=== PATIENT | male | born 1965 | race Hispanic/Latino ===

== ENCOUNTER 2017-08-20 02:55 | Inpatient (IN) | payer OTHER ==
[2017-08-20 02:55] VITALS: BMI 19.9
[2017-08-20] MEDS ORDERED: Sodium Chloride 0.9% 1,000 ML ONE (03:19)
[2017-08-20] MEDS ORDERED: Multivitamin (MVI) 10 ML, Thiamine 100 MG, Folic Acid 1 MG in Sodium Chloride 0.9% 1,00... IV ONE ×2 (03:51→04:51)
--- NOTE | 2017-08-20 04:01 | C.PDOC ---
History Of Present Illness 52 year old male with PMHx of chronic alcoholism is brought to the ED for evaluation of shakiness. Patient reports his last drinks was today at 17:00. Patient also has PMHx of seizures and is currently taking keppra. Patient denies fever, chills, nausea, vomit, diarrhea, headache, dizziness, weakness, numbness. Chief Complaint (Nursing): Substance Abuse History Per: Patient, EMS History/Exam Limitations: intoxication Onset/Duration Of Symptoms: Hrs Current Symptoms Are (Timing): Still Present Suicide/Self Injury Attempted (Context): None Modifying Factor(s): Alcohol Associated Symptoms: denies: Depression, Suicidal Thoughts, Suicidal Plan Involuntary Hold By: None Recent travel outside of the [place]: No Additional History Per: Patient, EMS Past Medical History Reviewed: Historical Data, Nursing Documentation, Vital Signs Vital Signs: Last Vital Signs Temp 98 F 08/20/17 05:51 Pulse 108 H 08/20/17 05:51 Resp 17 08/20/17 05:51 BP 126/76 08/20/17 05:51 Pulse Ox 96 08/20/17 05:51 - Medical History PMH: Anemia, Anxiety, Atrial Fibrillation, Cardia Arrhythmia, Dementia, Depression, Fractures (WRIST FX.), HTN, Paranoia, Pneumonia, Seizures Denies: Deep Vein Thrombosis, Chronic Kidney Disease Surgical History: Appendectomy Denies: Pacemaker - [facility] Procedures ALCOHOL DETOXIFICATION (06/21/14) APPLICATION OF SPLINT (04/20/14) DETOXIFICATION SERVICES FOR SUBSTANCE ABUSE TREATMENT (09/20/15) FLUOROSCOPY L UP EXTREM VEIN W L OSM CONTRAST, GUIDANCE (04/07/16) INJECT/INFUSE NEC (02/03/14) INSERTION OF INFUSION DEV INTO SUP VENA CAVA, PERC APPROACH (04/07/16) LINEAR REP LID LACER (07/07/12) MAGNETIC RESONANCE IMAGING OF BRAIN AND BRAIN STEM (10/26/12) MEASURE OF CARDIAC SAMPL & PRESSURE, L HEART, PERC APPROACH (04/07/16) PLAIN RADIOGRAPHY OF LEFT HEART USING LOW OSMOLAR CONTRAST (04/07/16) PLAIN RADIOGRAPHY OF MULT COR ART USING L OSM CONTRAST (04/07/16) TETANUS TOXOID ADMINIST (07/07/12) THERAPEUTIC PLATELETPHERESIS (04/01/13) ULTRASONOGRAPHY OF LEFT UPPER EXTREMITY VEINS, GUIDANCE (04/07/16) VENOUS PUNCTURE NEC (10/31/13) Family History: States: CAD - Social History Hx Tobacco Use: Yes Hx Alcohol Use: Yes Hx Substance Use: No - Immunization History Hx Tetanus Toxoid Vaccination: No Hx Influenza Vaccination: No Hx Pneumococcal Vaccination: No Review Of Systems Constitutional: Negative for: Fever, Chills Eyes: Negative for: Vision Change Cardiovascular: Negative for: Chest Pain, Palpitations Respiratory: Negative for: Cough, Shortness of Breath Gastrointestinal: Negative for: Nausea, Vomiting Skin: Negative for: Rash Neurological: Positive for: Confusion. Negative for: Weakness, Numbness, Headache, Dizziness Physical Exam - Physical Exam Appears: Non-toxic, No Acute Distress, Confused (slightly) Skin: Normal Color, Warm, Dry Head: Atraumatic, Normacephalic Eye(s): bilateral: Normal Inspection Oral Mucosa: Moist Neck: Normal ROM, Supple Chest: Symmetrical Cardiovascular: Rhythm Regular (tachucardic) Respiratory: Normal Breath Sounds, No Rales, No Rhonchi, No Wheezing Gastrointestinal/Abdominal: Soft, No Tenderness, No Guarding, No Rebound Extremity: Normal ROM, No Tenderness, No Swelling Neurological/Psych: Oriented x3 (slightly confused), Normal Speech, Other (no focal deficits) Gait: Unable To Assess ED Course And Treatment - Laboratory Results Result Diagrams: 08/20/17 05:18 08/20/17 05:18 Pulse Ox Interpretation: Normal Medical Decision Making Medical Decision Making: Plan: * Ativan 2 mg IM * Haldol 5 mg IM * IV fluids Disposition Discussed With : Miriam Ruggiero Doctor Will See Patient In The: Hospital Counseled Patient/Family Regarding: Diagnosis - Disposition Referrals: Non [facility] Provider, [Primary Care Provider] - Disposition: HOSPITALIZED Disposition Time: 06:19 Condition: STABLE Forms: [employer] (Kittitian) - POA Present On Arrival: None - Clinical Impression Clinical Impression: Alcohol withdrawal syndrome, Seizure disorder - Scribe Statement The provider has reviewed the documentation as recorded by the Scribe Chucky Aguilar All medical record entries made by the Scribe were at my direction and personally dictated by me. I have reviewed the chart and agree that the record accurately reflects my personal performance of the history, physical exam, medical decision making, and the department course for this patient. I have also personally directed, reviewed, and agree with the discharge instructions and disposition.
[2017-08-20] MEDS ORDERED: Sodium Chloride 0.9% 1,000 ML IV ONE (05:15)
[2017-08-20 05:22] LABS: BASO % 1.4 % (0.0-2.0); EOS % 0.4 % (0.0-4.0); HEMOGLOBIN 11.7 g/dL (12.0-18.0); LYMPH # 0.6 K/uL (1.0-4.3); LYMPH % 18.8 % (20.0-40.0); MEAN CELL VOLUME 97.1 fL (80.0-94.0); MEAN CORPUSCULAR HEMOGLOBIN 33.5 pg (27.0-31.0); MEAN CORPUSCULAR HGB CONC 34.5 g/dL (33.0-37.0); MEAN PLATELET VOLUME 7.5 fL (7.2-11.7); MONO # 0.4 K/uL (0.0-0.8); MONO % 10.5 % (0.0-10.0); NEUT # 2.4 K/uL (1.8-7.0); NEUT % 68.9 % (50.0-75.0); NRBC % 0.2 % (0.0-2.0); RBC 3.51 Mil/uL (4.40-5.90); RED CELL DISTRIBUTION WIDTH 13.6 % (11.5-14.5); WHITE BLOOD COUNT 3.5 K/uL (4.8-10.8)
[2017-08-20 05:38] LABS: ALB/GLOB RATIO 1.3 (1.0-2.1); ALBUMIN 4.1 g/dL (3.5-5.0); ALT/SGPT 45 U/L (21-72); AST/SGOT 70 U/L (17-59); BLOOD UREA NITROGEN 6 mg/dL (9-20); GFR AFRICAN-AMERICAN > 60; GFR NON-AFRICAN AMERICAN > 60
[2017-08-20] MEDS: Dextrose 5%/0.45% NS 1,000 ML IV SCH ×3 (06:37→20:39)
[2017-08-20] MEDS: Thiamine 100 mg/ml Inj IM SCH (11:25)
--- NOTE | 2017-08-20 12:33 | CP.PCM.PN ---
Subjective - Date & Time of Evaluation Date of Evaluation: 08/20/17 Time of Evaluation: 12:30 - Subjective Subjective: PGY2 note for Dr. Ruggiero's service: Pt seen and examined at bedside on . Patient reports long history of alcohol abuse. Patient states he has been drinking for over 30+ years. Typical usage is "6-12 beers daily." Last drink occurred right before ocming to ED. He denies additional hard liquor. He admits previous history of delirium tremens: hallucinations, formication. Denies long period of sobriety over the 30+ years. Admits previous re[facility] attempt [facility] 15-20 yrs ago. Pt admits he is homeless. He reports he has not had "place to stay for months." He admits he has ran out of his home medication and has not taken "anything for 2-3 weeks." He denies chest pain, palpitations, abd pain, N/V, skin changes. Patient is 52 yo male, with PMHx of atrial fibrillation, seizure disorder, chronic alcoholism, Paul's gangrene, presenting to ED for "feeling shaky." Admits formication, tremors x 4 hours prior to coming to ED. Admits history of seizures, but has been taking "keppra infrequently recently." Denies syncopal episodes but admits multiple falls. Denies hitting head. PMHx: Afib (not on anticoagulant due to frequent falls), EtOH abuse, seizure disorder PSHx: Appendectomy, Paul's gangrene SHx: Tobacco: 1/2 ppd -1ppd x 40 years, Alcohol: 6-12pk beers/day x 30+ years Allergies: NKA Home meds: Keppra 1000mg PO BID, Toprol XL 100mg PO BID Objective - Vital Signs/Intake and Output Vital Signs (last 24 hours): Temp Pulse Resp BP Pulse Ox 98 F 88 21 128/82 96 08/20/17 10:35 08/20/17 10:35 08/20/17 10:35 08/20/17 10:35 08/20/17 10:35 - Medications Medications: Current Medications Dextrose/Sodium Chloride (Dextrose 5%/0.45% Ns 1000 Ml) 1,000 mls @ 100 mls/hr IV .Q10H [facility] Last Admin: 08/20/17 06:37 Dose: 100 mls/hr Levetiracetam (Keppra) 1,000 mg PO BID [facility] Last Admin: 08/20/17 11:05 Dose: 1,000 mg Lorazepam (Ativan) 2 mg IVP Q4H PRN PRN Reason: Anxiety Thiamine HCl (Vitamin B1 Inj) 100 mg IM DAILY [facility] Last Admin: 08/20/17 11:25 Dose: 100 mg - Labs Labs: 08/20/17 05:18 08/20/17 05:18 - Constitutional Appears: Non-toxic, No Acute Distress, Older Than Stated Age, Chronically Ill - Head Exam Head Exam: ATRAUMATIC, NORMAL INSPECTION - Eye Exam Eye Exam: EOMI, Normal appearance. absent: Scleral icterus Pupil Exam: PERRL - ENT Exam ENT Exam: Mucous Membranes Dry - Neck Exam Neck Exam: Full ROM - Respiratory Exam Respiratory Exam: Clear to Ausculation Bilateral, NORMAL BREATHING PATTERN. absent: Decreased Breath Sounds, Rales - Cardiovascular Exam Cardiovascular Exam: REGULAR RHYTHM, +S1, +S2 - GI/Abdominal Exam GI & Abdominal Exam: Soft, Normal Bowel Sounds. absent: Tenderness Additional comments: surgical scar from prior bowel surgery - Extremities Exam Extremities Exam: absent: Normal Inspection, Pedal Edema, Tenderness Additional comments: Ecchymosis on right knee - Back Exam Back Exam: absent: CVA tenderness (L), CVA tenderness (R) - Neurological Exam Neurological Exam: Alert, Awake, Oriented x3 - Psychiatric Exam Psychiatric exam: Normal Affect, Normal Mood - Skin Skin Exam: Dry, Normal Color, Warm Assessment and Plan - Assessment and Plan (Free Text) Plan: EtOH Withdrawal Observe on med surg EtOH level 213 on admission Previous multiple admissions to [facility] for same complaint. Seizure precautions, Aspiration precautions, Fall precautions, Neurochecks q 4 Ativan taper Ativan 2mg Q4H PRN D5/1/2 NS @100cc/hr f/u UDS, UA Seizure D/O Restart home Keppra 100mg PO BID EEG 2016 shows no epilleptiform activity AFib Currently rate controlled EKG (08/20/17): Afib @[address]; [address]/T wave changes Toprol XL 100 (hold if SBP <110 or Pulse <60) CHADsVAsc:1 (HTN history) HASBLED: 1 (> 8 drinks per week) No anticoagulation due to frequent falls Cont to monitor Pancytopenia likely Alcohol induced Hold Heparin Monitor HFmrEF (CHF with mildly reduced EF) ECHO (10/2016): systolic fxn mildly impaired EF ~45%. RV mildly dilated. Mild to moderate tricuspid regurgitation. No pericardial effusion. No vegetation or thrombus. Toprol XL 100mg PO Daily Transaminitis (elevated AST) AST 2:1 typical of EtOH AST 70 / ALT 45 Hx of ETOH abuse: Advised cessation Hx of tobacco abuse: Nicotine patch Prophylaxis Hold heparin due to thrombocytopenia SCDs GI not indicated Disposition: Pt on Ativan taper. Interested in [facility] re[facility]. Jace Batista PGY-2 All medical management per Dr. Marie
[2017-08-20] MEDS: Metoprolol Succinate 100 mg XL Tab PO SCH (14:41)
[2017-08-20 22:52] LABS: URINE BILIRUBIN NEGATIVE (NEGATIVE); URINE BLOOD NEGATIVE (NEGATIVE); URINE CLARITY Clear (Clear); URINE COLOR Yellow (YELLOW); URINE GLUCOSE (UA) 1+ mg/dL (Normal); URINE LEUKOCYTE ESTERASE NEG Leu/uL (Negative); URINE PROTEIN NEGATIVE (NEGATIVE)
[2017-08-20 23:16] LABS: BARBITURATES, UR NEGATIVE (NEGATIVE); BENZODIAZEPINES, UR NEGATIVE (NEGATIVE); OPIATES, UR NEGATIVE (NEGATIVE); PHENCYCLIDINE, UR NEGATIVE (NEGATIVE)
[2017-08-21] MEDS: Dextrose 5%/0.45% NS 1,000 ML IV SCH ×5 (02:58→22:12)
[2017-08-21] MEDS: Multiple Vitamins Tab PO SCH (10:35)
[2017-08-21 11:38] LABS: BASO % 1.1 % (0.0-2.0); EOS # 0.1 K/uL (0.0-0.7); EOS % 1.9 % (0.0-4.0); HEMOGLOBIN 12.5 g/dL (12.0-18.0); LYMPH # 0.7 K/uL (1.0-4.3); LYMPH % 22.9 % (20.0-40.0); MEAN CELL VOLUME 96.5 fL (80.0-94.0); MEAN CORPUSCULAR HEMOGLOBIN 34.1 pg (27.0-31.0); MEAN CORPUSCULAR HGB CONC 35.3 g/dL (33.0-37.0); MONO # 0.5 K/uL (0.0-0.8); MONO % 14.2 % (0.0-10.0); NEUT # 1.9 K/uL (1.8-7.0); NEUT % 59.9 % (50.0-75.0); NRBC % 0.1 % (0.0-2.0); RBC 3.67 Mil/uL (4.40-5.90); RED CELL DISTRIBUTION WIDTH 13.8 % (11.5-14.5); WHITE BLOOD COUNT 3.2 K/uL (4.8-10.8)
[2017-08-21 12:04] LABS: ALB/GLOB RATIO 1.4 (1.0-2.1); ALBUMIN 4.8 g/dL (3.5-5.0); ALT/SGPT 48 U/L (21-72); AST/SGOT 89 U/L (17-59); BLOOD UREA NITROGEN 6 mg/dL (9-20); CALCIUM 8.8 mg/dl (8.6-10.4); GFR AFRICAN-AMERICAN > 60; GFR NON-AFRICAN AMERICAN > 60
[2017-08-21] MEDS: Thiamine 100 mg/ml Inj IM SCH (13:01)
[2017-08-21] MEDS: Metoprolol Succinate 100 mg XL Tab PO SCH (13:01)
[2017-08-21] MEDS: Magnesium Chloride 64 mg ER Tab PO SCH ×2 (14:05→17:25)
[2017-08-21] MEDS: Potassium Chloride 20 mEq ER Tab PO SCH (14:05)
--- NOTE | 2017-08-22 08:14 | PCM.PSYCH ---
Initial Psychiatric Evaluation - Initial Psychiatric Evaluation Type of Admission: Voluntary Legal Status: Capacity Chief Complaint (in patient's own words): I want to leave.' History of Present Illness and Precipitating Events: This is a 52 years old CM, currently homeless, and unemployed with history of depressive disorder and alcohol use disorder was consulted because of disorganized behavior. Today pt was consulted. As per the staff pt remained disorganized and internally preoccupied. He remained delusional and remained responding to internal stimuli. He remained forgetful and appeared delirious. As per the staff he was trying to pull out the IV lines and was trying to come out of the bed. Per staff he was going back and forth in conscious state of mind. He was shaking and his BAL was 213. However, he denied any suicidal ideation and/or any homicidal ideation. Past medical history AFib Current Medications: Active Medications Generic Name Dose Route Start Last Admin Trade Name Freq PRN Reason Stop Dose Admin Folic Acid 1 mg 08/21/17 10:00 08/21/17 10:35 Folic Acid PO 1 mg DAILY [facility] Administration Dextrose/Sodium Chloride 1,000 mls @ 100 mls/hr 08/20/17 06:30 08/21/17 22:12 Dextrose 5%/0.45% Ns 1000 Ml IV 100 mls/hr .Q10H [facility] Administration Levetiracetam 1,000 mg 08/20/17 10:00 08/21/17 17:25 Keppra PO 1,000 mg BID [facility] Administration Lorazepam 2 mg 08/20/17 06:23 08/22/17 07:07 Ativan IVP 2 mg Q4H PRN Administration Anxiety Lorazepam 2 mg 08/20/17 13:00 08/22/17 03:33 Ativan PO 08/25/17 12:59 2 mg Q4 [facility] Administration Taper Magnesium Chloride 64 mg 08/21/17 14:00 08/21/17 17:25 Slow-Mag PO 64 mg TID [facility] Administration Metoprolol Succinate 100 mg 08/20/17 14:00 08/21/17 13:01 Toprol Xl PO 100 mg Q24H [facility] Administration Multivitamins 1 tab 08/21/17 10:00 08/21/17 10:35 Hexavitamin PO 1 tab DAILY [facility] Administration Nicotine 1 patch 08/20/17 14:00 08/21/17 13:01 Nicoderm Cq TD 1 patch Q24H [facility] Administration Potassium Chloride 20 meq 08/21/17 13:45 08/21/17 14:05 K-Dur 20 Meq Er Tab PO 20 meq DAILY [facility] Administration Thiamine HCl 100 mg 08/20/17 10:00 08/21/17 13:01 Vitamin B1 Inj IM 100 mg DAILY [facility] Administration Past Psychiatric History - Past Psychiatric History Previous Treatment History: None Pertinent Medical Hx (Current Medical&Sleep Prob, Allergies): Allergies Allergy/AdvReac Type Severity Reaction Status Date / Time No Known Allergies Allergy Verified 08/20/17 03:12 levETIRAcetam [Keppra] 1 tab PO BID #60 tab 05/26/17 Review of Systems - Review of Systems All systems: reviewed and no additional remarkable complaints except - Psychiatric Psychiatric: Anxiety, Auditory Hallucinations, Irritability, Paranoia Mental Status Examination - Personal Presentation Personal Presentation: Looks stated age - Affect Affect: Broad - Motor Activity Motor Activity: Psychomotor Agitation - Reliability in Providing Information Reliability in Providing Information: Fair - Speech Speech: Disorganized - Mood Mood: Anxious - Formal Thought Process Formal Thought Process: Delusions, Paranoia, Loosening of associations - Hallucinations/Delusions Delusions: Persecution - Obsessions/Compulsions Obsessions: No Compulsions: No - Cognitive Functions Orientation: Person, Place, Situation Sensorium: Alert Attention/Concentration: Attentive Abstract Thinking: [place] Estimate of Intelligence: Below average Judgement: Imparied, as evidence by: Poor judgement, Imparied, as evidence by: Lack of insight into illness - Risk Risk: Homicidal, Seizure, Diminished functioning - Strength & Assets Inventory Strength & Assets Inventory: Family support DSM 5 DX - DSM 5 DSM 5 Diagnosis: Delirium Alcohol use disorder severe Alcohol withdrawal Depressive disorder - Recommended/Plan of Treatment Treatment Recommendations and Plan of Treatment: Delirium Alcohol use disorder severe Alcohol withdrawal Depressive disorder CBT Psychoeducation Supportive therapy, group therapy Ativan taper Haldol prn Benadryl 50 mg PRN Ativan1 mg mg PRN Continue 1:1 Trazodone 50 mg by mouth daily at bedtime - Smoking Cessation Smoking Cessation Initiated: No
[2017-08-22] MEDS ORDERED: DiphenhydrAMINE 50 mg/ml Inj IM PRN (08:22)
[2017-08-22] MEDS: Dextrose 5%/0.45% NS 1,000 ML IV SCH (08:31)
[2017-08-22] MEDS: Thiamine 100 mg/ml Inj IM SCH (09:37)
[2017-08-22] MEDS: Potassium Chloride 20 mEq ER Tab PO SCH (09:37)
[2017-08-22] MEDS: Multiple Vitamins Tab PO SCH (09:37)
[2017-08-22] MEDS: Magnesium Chloride 64 mg ER Tab PO SCH ×3 (09:37→17:39)
[2017-08-22] MEDS: Metoprolol Succinate 100 mg XL Tab PO SCH (14:10)
--- NOTE | 2017-08-23 07:35 | HP ---
HISTORY OF PRESENT ILLNESS: This is a 52-year-old male with history of alcoholism, history of seizure, chief complaint of alcohol withdrawal. PHYSICAL EXAMINATION: GENERAL: The patient is awake, alert, and oriented. VITAL SIGNS: Temperature 98, pulse 90. HEENT: Within normal limits. NECK: Supple. CHEST: Symmetrical. HEART: Regular. ABDOMEN: Soft. EXTREMITIES: No edema. IMPRESSION AND PLAN: The patient suffers from alcohol withdrawal. The patient is to bed rest. Supportive care. Miriam Ruggiero MD
--- NOTE | 2017-08-23 07:39 | PN ---
DATE: 08/22/2017 The patient is on IV antibiotics. Supportive care. Miriam Ruggiero MD [facility] # [id number]
[2017-08-23] MEDS: Potassium Chloride 20 mEq ER Tab PO SCH (09:34)
[2017-08-23] MEDS: Multiple Vitamins Tab PO SCH (09:34)
[2017-08-23] MEDS: Magnesium Chloride 64 mg ER Tab PO SCH ×3 (09:34→17:51)
[2017-08-23] MEDS: Thiamine 100 mg/ml Inj IM SCH (09:34)
--- NOTE | 2017-08-23 11:34 | CP.PCM.PN ---
Subjective - Date & Time of Evaluation Date of Evaluation: 08/23/17 Time of Evaluation: 11:33 - Subjective Subjective: PGY-[address] Ruggiero's Service Patient seen and examined at [facility]. Per nursing no acute events occurred overnight. Patient does report some anxiety today but says it has improved from this weekend. Patient denies any chest pain, shortness of breath, fevers, chills , nausea, vomiting, syncopal episodes, abdominal pain, or any other complaints. Objective - Vital Signs/Intake and Output Vital Signs (last 24 hours): Temp Pulse Resp BP Pulse Ox 97.6 F 112 H 20 138/95 H 99 08/23/17 07:00 08/23/17 08:20 08/23/17 07:00 08/23/17 07:00 08/23/17 07:00 - Medications Medications: Current Medications Benztropine Mesylate (Cogentin) 2 mg PO Q6 PRN PRN Reason: Extra Pyramidal Symptoms Diphenhydramine HCl (Benadryl) 50 mg IM Q6 PRN PRN Reason: Agitation Folic Acid (Folic Acid) 1 mg PO DAILY [facility] Last Admin: 08/23/17 09:34 Dose: 1 mg Haloperidol (Haldol) 5 mg PO Q8 PRN PRN Reason: Moderate Agitation Last Admin: 08/22/17 17:45 Dose: 5 mg Haloperidol Lactate (Haldol) 5 mg IM Q8 PRN PRN Reason: Moderate Agitation Levetiracetam (Keppra) 1,000 mg PO BID [facility] Last Admin: 08/23/17 09:34 Dose: 1,000 mg Lorazepam (Ativan) 2 mg IVP Q4H PRN PRN Reason: Anxiety Last Admin: 08/22/17 21:24 Dose: 2 mg Lorazepam (Ativan) 1 mg PO Q4 [facility] PRN Reason: Taper Stop: 08/25/17 12:59 Last Admin: 08/23/17 08:52 Dose: 1 mg Magnesium Chloride (Slow-Mag) 64 mg PO TID [facility] Last Admin: 08/23/17 09:34 Dose: 64 mg Metoprolol Succinate (Toprol Xl) 100 mg PO Q24H [facility] Last Admin: 08/22/17 14:10 Dose: Not Given Multivitamins (Hexavitamin) 1 tab PO DAILY [facility] Last Admin: 08/23/17 09:34 Dose: 1 tab Nicotine (Nicoderm Cq) 1 patch TD Q24H [facility] Last Admin: 08/22/17 13:11 Dose: 1 patch Potassium Chloride (K-Dur 20 Meq Er Tab) 20 meq PO DAILY [facility] Last Admin: 08/23/17 09:34 Dose: 20 meq Thiamine HCl (Vitamin B1 Inj) 100 mg IM DAILY [facility] Last Admin: 08/23/17 09:34 Dose: 100 mg - Labs Labs: 08/21/17 11:31 08/21/17 11:31 - Head Exam Head Exam: ATRAUMATIC, NORMAL INSPECTION, NORMOCEPHALIC - Eye Exam Eye Exam: EOMI, Normal appearance, PERRL. absent: Periorbital tenderness Pupil Exam: NORMAL ACCOMODATION, PERRL. absent: Irregular, Unequal - ENT Exam ENT Exam: Mucous Membranes Moist, Normal Oropharynx - Respiratory Exam Respiratory Exam: Clear to Ausculation Bilateral, NORMAL BREATHING PATTERN. absent: Chest Wall Tenderness, Prolonged Expiratory Phase, Respiratory Distress - Cardiovascular Exam Cardiovascular Exam: REGULAR RHYTHM, +S1, +S2 - GI/Abdominal Exam GI & Abdominal Exam: Normal Bowel Sounds - Extremities Exam Extremities Exam: Full ROM, Normal Inspection. absent: Pedal Edema - Back Exam Back Exam: NORMAL INSPECTION. absent: CVA tenderness (R), paraspinal tenderness - Neurological Exam Neurological Exam: Alert, Awake - Psychiatric Exam Psychiatric exam: Anxious, Normal Mood - Skin Skin Exam: Dry, Intact, Normal Color Assessment and Plan - Assessment and Plan (Free Text) Assessment: 52 year old male with a past medical history of alcohol abuse, seizures and atrial fibrillation who was admitted for alcohol withdrawal. Plan: 1. Alcohol withdrawal -ERI 213 upon admission. -UDS negative. -Continue Ativan 2mg q4 prn -Continue Ativan 1mg PO Q4 [facility] -Folic acid 1mg PO DAILY -Thiamine 100mg IM Daily [facility] -Multivitamin 2. History of Seizures -Stable -Continue Keppra 1000mg PO BID [facility] 3. History of smoking -Nicoderm 1 PATCH td q24h
[2017-08-23] MEDS: Metoprolol Succinate 100 mg XL Tab PO SCH (13:24)
--- NOTE | 2017-08-24 07:09 | CARD ---
APPROVED REPORT Date of service: 08/20/2017 EKG Measurement Heart [id number] <Conclusion> Atrial fibrillation Septal infarct, age undetermined Abnormal ECG
[2017-08-24 07:41] LABS: BASO % 0.7 % (0.0-2.0); EOS # 0.4 K/uL (0.0-0.7); EOS % 5.5 % (0.0-4.0); HEMOGLOBIN 12.5 g/dL (12.0-18.0); LYMPH # 1.8 K/uL (1.0-4.3); LYMPH % 24.3 % (20.0-40.0); MEAN CELL VOLUME 98.1 fL (80.0-94.0); MEAN CORPUSCULAR HEMOGLOBIN 34.8 pg (27.0-31.0); MEAN CORPUSCULAR HGB CONC 35.5 g/dL (33.0-37.0); MEAN PLATELET VOLUME 9.1 fL (7.2-11.7); MONO # 1.2 K/uL (0.0-0.8); MONO % 16.3 % (0.0-10.0); NEUT # 3.8 K/uL (1.8-7.0); NEUT % 53.2 % (50.0-75.0); NRBC % 0.2 % (0.0-2.0); RBC 3.6 Mil/uL (4.40-5.90); RED CELL DISTRIBUTION WIDTH 13.6 % (11.5-14.5)
--- NOTE | 2017-08-24 07:44 | CP.PCM.PN ---
Subjective - Date & Time of Evaluation Date of Evaluation: 08/24/17 Time of Evaluation: 07:44 - Subjective Subjective: PGY-[address] Ruggiero's Service Patient seen and examined at bedside. Per nursing no acute events occurred overnight. Patient does report a little anxiety today but says it has improved from yesterday. Patient denies any chest pain, shortness of breath, fevers, chills, nausea, vomiting, syncopal episodes, abdominal pain, or any other complaints. Objective - Vital Signs/Intake and Output Vital Signs (last 24 hours): Temp Pulse Resp BP Pulse Ox 97.9 F 87 18 125/84 96 08/23/17 23:19 08/23/17 23:25 08/23/17 23:19 08/23/17 23:19 08/23/17 23:19 - Medications Medications: Current Medications Benztropine Mesylate (Cogentin) 2 mg PO Q6 PRN PRN Reason: Extra Pyramidal Symptoms Diphenhydramine HCl (Benadryl) 50 mg IM Q6 PRN PRN Reason: Agitation Folic Acid (Folic Acid) 1 mg PO DAILY [facility] Last Admin: 08/23/17 09:34 Dose: 1 mg Haloperidol (Haldol) 5 mg PO Q8 PRN PRN Reason: Moderate Agitation Last Admin: 08/22/17 17:45 Dose: 5 mg Haloperidol Lactate (Haldol) 5 mg IM Q8 PRN PRN Reason: Moderate Agitation Levetiracetam (Keppra) 1,000 mg PO BID [facility] Last Admin: 08/23/17 17:50 Dose: 1,000 mg Lorazepam (Ativan) 2 mg IVP Q4H PRN PRN Reason: Anxiety Last Admin: 08/22/17 21:24 Dose: 2 mg Lorazepam (Ativan) 1 mg PO Q8 [facility] PRN Reason: Taper Stop: 08/25/17 12:59 Last Admin: 08/24/17 06:15 Dose: Not Given Magnesium Chloride (Slow-Mag) 64 mg PO TID [facility] Last Admin: 08/23/17 17:51 Dose: 64 mg Metoprolol Succinate (Toprol Xl) 100 mg PO Q24H [facility] Last Admin: 08/23/17 13:24 Dose: 100 mg Multivitamins (Hexavitamin) 1 tab PO DAILY [facility] Last Admin: 08/23/17 09:34 Dose: 1 tab Nicotine (Nicoderm Cq) 1 patch TD Q24H [facility] Last Admin: 08/23/17 13:24 Dose: 1 patch Potassium Chloride (K-Dur 20 Meq Er Tab) 20 meq PO DAILY [facility] Last Admin: 08/23/17 09:34 Dose: 20 meq Thiamine HCl (Vitamin B1 Inj) 100 mg IM DAILY [facility] Last Admin: 08/23/17 09:34 Dose: 100 mg - Labs Labs: 08/21/17 11:31 08/21/17 11:31 - Head Exam Head Exam: ATRAUMATIC, NORMAL INSPECTION, NORMOCEPHALIC - Eye Exam Eye Exam: EOMI, Normal appearance, PERRL Pupil Exam: NORMAL ACCOMODATION, PERRL - ENT Exam ENT Exam: Mucous Membranes Moist, Normal Exam - Neck Exam Neck Exam: Normal Inspection - Respiratory Exam Respiratory Exam: Clear to Ausculation Bilateral, NORMAL BREATHING PATTERN - Cardiovascular Exam Cardiovascular Exam: REGULAR RHYTHM, +S1, +S2 - GI/Abdominal Exam GI & Abdominal Exam: Soft, Normal Bowel Sounds - Extremities Exam Extremities Exam: Full ROM. absent: Pedal Edema - Back Exam Back Exam: NORMAL INSPECTION. absent: CVA tenderness (R), paraspinal tenderness - Neurological Exam Neurological Exam: Alert, Awake, CN II-XII Intact - Psychiatric Exam Psychiatric exam: Normal Affect, Normal Mood - Skin Skin Exam: Dry, Intact Assessment and Plan - Assessment and Plan (Free Text) Plan: EtOH Withdrawal Observe on med surg EtOH level 213 on admission Previous multiple admissions to [facility] for same complaint. Seizure precautions, Aspiration precautions, Fall precautions, Neurochecks q 4 Ativan taper Ativan 2mg Q4H PRN D5/1/2 NS @100cc/hr f/u UDS, UA Seizure D/O Continue home Keppra 100mg PO BID EEG 2016 shows no epilleptiform activity AFib Currently rate controlled EKG (08/20/17): Afib @93 bpm; no acute ST/T wave changes Toprol XL 100 (hold if SBP <110 or Pulse <60) CHADsVAsc:1 (HTN history) HASBLED: 1 (> 8 drinks per week) No anticoagulation due to frequent falls Cont to monitor Pancytopenia likely Alcohol induced Hold Heparin Monitor HFmrEF (CHF with mildly reduced EF) ECHO (10/2016): systolic fxn mildly impaired EF ~45%. RV mildly dilated. Mild to moderate tricuspid regurgitation. No pericardial effusion. No vegetation or thrombus. Toprol XL 100mg PO Daily Transaminitis (elevated AST) AST 2:1 typical of EtOH AST 70 / ALT 45 Hx of ETOH abuse: Advised cessation Hx of tobacco abuse: Nicotine patch Prophylaxis Hold heparin due to thrombocytopenia SCDs GI not indicated Disposition: Pt on Ativan taper. [facility]ed [facility]. William Graham PGY-2 All medical management per Dr. Ruggiero
[2017-08-24 08:09] LABS: WHITE BLOOD COUNT 7.2 K/uL (4.8-10.8)
[2017-08-24 08:48] LABS: ALB/GLOB RATIO 1.2 (1.0-2.1); ALBUMIN 4.3 g/dL (3.5-5.0); ALT/SGPT 151 U/L (21-72); AST/SGOT 169 U/L (17-59); BLOOD UREA NITROGEN 15 mg/dL (9-20); CALCIUM 10.2 mg/dl (8.6-10.4); GFR AFRICAN-AMERICAN > 60; GFR NON-AFRICAN AMERICAN > 60
[2017-08-24] MEDS: Potassium Chloride 20 mEq ER Tab PO SCH (09:11)
[2017-08-24] MEDS: Multiple Vitamins Tab PO SCH (09:11)
[2017-08-24] MEDS: Thiamine 100 mg/ml Inj IM SCH (09:11)
[2017-08-24] MEDS: Magnesium Chloride 64 mg ER Tab PO SCH ×3 (09:11→17:43)
[2017-08-24] MEDS: Metoprolol Succinate 100 mg XL Tab PO SCH (13:11)
[2017-08-25] MEDS: Thiamine 100 mg/ml Inj IM SCH (10:05)
[2017-08-25] MEDS: Potassium Chloride 20 mEq ER Tab PO SCH (10:06)
[2017-08-25] MEDS: Multiple Vitamins Tab PO SCH (10:06)
[2017-08-25] MEDS: Magnesium Chloride 64 mg ER Tab PO SCH ×3 (11:00→17:06)
--- NOTE | 2017-08-25 11:25 | CP.PCM.PN ---
Subjective - Date & Time of Evaluation Date of Evaluation: 08/25/17 Time of Evaluation: 11:22 - Subjective Subjective: Patient seen and examined at bedside. Per nursing no acute events occurred overnight. Patient reports not sleeping well overnight due to his roommate. He reports tolerating his diet. He denies any SI/HI/AH/VH. He denies any chest pain , shortness of breath, fevers, chills, or any other complaints. Objective - Vital Signs/Intake and Output Vital Signs (last 24 hours): Temp Pulse Resp BP Pulse Ox 97.8 F 77 20 172/82 H 100 08/25/17 07:00 08/25/17 08:08 08/25/17 07:00 08/25/17 07:00 08/25/17 07:00 Intake and Output: 08/25/17 08/25/17 06:59 18:59 Intake Total 240 Balance 240 - Medications Medications: Current Medications Benztropine Mesylate (Cogentin) 2 mg PO Q6 PRN PRN Reason: Extra Pyramidal Symptoms Diphenhydramine HCl (Benadryl) 50 mg IM Q6 PRN PRN Reason: Agitation Folic Acid (Folic Acid) 1 mg PO DAILY [facility] Last Admin: 08/25/17 10:06 Dose: 1 mg Haloperidol (Haldol) 5 mg PO Q8 PRN PRN Reason: Moderate Agitation Last Admin: 08/22/17 17:45 Dose: 5 mg Haloperidol Lactate (Haldol) 5 mg IM Q8 PRN PRN Reason: Moderate Agitation Levetiracetam (Keppra) 1,000 mg PO BID [facility] Last Admin: 08/25/17 10:06 Dose: 1,000 mg Lorazepam (Ativan) 2 mg IVP Q4H PRN PRN Reason: Anxiety Last Admin: 08/22/17 21:24 Dose: 2 mg Lorazepam (Ativan) 1 mg PO Q24H [facility] PRN Reason: Taper Stop: 08/25/17 12:59 Last Admin: 08/24/17 13:11 Dose: 1 mg Magnesium Chloride (Slow-Mag) 64 mg PO TID [facility] Last Admin: 08/24/17 17:43 Dose: 64 mg Metoprolol Succinate (Toprol Xl) 100 mg PO Q24H [facility] Last Admin: 08/24/17 13:11 Dose: 100 mg Multivitamins (Hexavitamin) 1 tab PO DAILY [facility] Last Admin: 08/25/17 10:06 Dose: 1 tab Nicotine (Nicoderm Cq) 1 patch TD Q24H [facility] Last Admin: 08/24/17 13:11 Dose: 1 patch Potassium Chloride (K-Dur 20 Meq Er Tab) 20 meq PO DAILY [facility] Last Admin: 08/25/17 10:06 Dose: 20 meq Thiamine HCl (Vitamin B1 Inj) 100 mg IM DAILY [facility] Last Admin: 08/25/17 10:05 Dose: 100 mg - Labs Labs: 08/24/17 07:12 08/24/17 07:12 - Head Exam Head Exam: ATRAUMATIC, NORMAL INSPECTION, NORMOCEPHALIC - Eye Exam Eye Exam: EOMI, Normal appearance, PERRL. absent: Periorbital tenderness Pupil Exam: NORMAL ACCOMODATION, PERRL - ENT Exam ENT Exam: Mucous Membranes Moist, Normal Oropharynx - Respiratory Exam Respiratory Exam: Clear to Ausculation Bilateral, NORMAL BREATHING PATTERN. absent: Prolonged Expiratory Phase, Respiratory Distress - Cardiovascular Exam Cardiovascular Exam: REGULAR RHYTHM, +S1, +S2 - GI/Abdominal Exam GI & Abdominal Exam: Soft, Normal Bowel Sounds - Extremities Exam Extremities Exam: Full ROM. absent: Joint Swelling, Pedal Edema, Tenderness - Neurological Exam Neurological Exam: Alert, Awake, CN II-XII Intact, Normal Gait, Oriented x3 Assessment and Plan - Assessment and Plan (Free Text) Plan: EtOH Withdrawal Observe on med surg EtOH level 213 on admission Previous multiple admissions to [facility] for same complaint. Seizure precautions, Aspiration precautions, Fall precautions, Neurochecks q 4 Ativan taper completed. Physical therapy evaluation recommends Subacute rehab. Will follow up with social work. Seizure D/O Continue home Keppra 100mg PO BID EEG 2016 shows no epilleptiform activity AFib Currently rate controlled EKG (08/20/17): Afib @[address]; [address]/T wave changes Toprol XL 100 (hold if SBP <110 or Pulse <60) CHADsVAsc:1 (HTN history) HASBLED: 1 (> 8 drinks per week) No anticoagulation due to frequent falls Cont to monitor Pancytopenia likely Alcohol induced Hold Heparin Monitor HFmrEF (CHF with mildly reduced EF) ECHO (10/2016): systolic fxn mildly impaired EF ~45%. RV mildly dilated. Mild to moderate tricuspid regurgitation. No pericardial effusion. No vegetation or thrombus. Toprol XL 100mg PO Daily Transaminitis (elevated AST) AST 2:1 typical of EtOH Hx of ETOH abuse: Advised cessation Hx of tobacco abuse: Nicotine patch Prophylaxis Hold heparin due to thrombocytopenia SCDs GI not indicated Disposition:Patient expected to move to Subacute rehab for therapy. Pending insurance approval. William Graham PGY-2 All medical management per Dr. Ruggiero Discharge Instructions: 1.Follow up with PMD or make an appointment with [facility] within 5 to 7 days upon discharge. 2.Provided information regarding group home rehab options upon discharge. 3 Advised patient to return to hospital for any new or worsening symptoms.
--- NOTE | 2017-08-25 12:38 | PCM.PYCHPN ---
Psychiatric Progress Note - Psychiatric Progress Note Patient seen today, length of contact: 18 min Patient Chief Complaint: "I'm depressed" Problems Identified/Issues Discussed: The patient is seen, chart reviewed and case discussed. Order Runner is covering for Dr. Webb was saw the patient for initial consult. He is a 52-year-old male, with no children. He is completing his alcohol detox today. He is worried about his living conditions because he is currently homeless due to eviction. However, he is hopeful that his brother will take him and his . He admits to feeling depressed even though alcohol detox is completed. However, he is not suicidal and no neymar or psychosis elicited. He has many depressive symptoms though. Antidepressant treatment discussed and he agreed. He will be referred to an [facility], as per his resident doctor. Medication Change: Yes Medical Record Reviewed: Yes Mental Status Examination - Cognitive Function Orientation: Person, Place, Situation, Time Memory: Intact Attention: WNL Concentration: WNL Association: WNL Fund of Knowledge: WNL - Mood Mood: Depressed, Anxious - Affect Affect: Constricted - Speech Speech: Appropriate - Formal Thought Process Formal Thought Process: No Impairment - Suicidal Ideation Suicidal Ideation: No - Homicidal Ideation Homicidal Ideation: No Goal/Treatment Plan - Goal/Treatment Plan Need for Continued Stay: Other (medical) Progress Toward Problem(s) and Goals/Treatment Plan: No need for inpatient psychiatric hospitalization. Start Lexapro for depression Start trazodone for insomnia Support and psychoeducation He should follow up with outpatient psychiatry, AA and maybe IOP after discharge from [facility] He agreed with the plan.
[2017-08-25] MEDS: Metoprolol Succinate 100 mg XL Tab PO SCH (13:05)
--- NOTE | 2017-08-25 17:24 | PCM.RRT ---
PROGRAM MANAGER RN Nurses Assessment - Situation Date: 08/25/17 Time PROGRAM MANAGER RN was called: 16:11 PROGRAM MANAGER RN Responder Arrival Time:: 16:12 PROGRAM MANAGER RN Location:: Med/Surg Room Number: 565-A PROGRAM MANAGER RN Reason for Call: Change in Mental Status PROGRAM MANAGER RN Called By: RN - IV IV Inserted during PROGRAM MANAGER RN?: No New IV Insertion Tolerance: Good - Respiratory PROGRAM MANAGER RN Delivery Method: Nasal Cannula @L/min Oxygen Flow Rate: 2 Received Nebulizer Treatments: No Was the Patient Ventilated with Bag/Mask 100% O2?: No Secretions Suctioned?: No Was the Patient Intubated?: No Was the Patient Placed on a Ventilator?: No - Medication Medications Administered During PROGRAM MANAGER RN: Ativan 2 mg 16:18 - Diagnostic Test Ordered EKG: No Chest X-Ray: No CT Scan: No CPR started during PROGRAM MANAGER RN?: No - Vital Signs Vital Signs: Rapid Response Vital Sign Blood Pressure 197/94 Pulse Rate 92 Respiratory Rate 20 Oxygen Saturation 99 - Time PROGRAM MANAGER RN Ended Time PROGRAM MANAGER RN Ended: 16:40 - Vital Signs at end of PROGRAM MANAGER RN Vital Signs at end of PROGRAM MANAGER RN: Rapid Response End Vital Sign Blood Pressure 159/81 Pulse Rate 82 Respiratory Rate 18 Temperature 97.8 F O2 Sat by Pulse Oximetry 99 - Recommendations Notifications: Attending Physician, Family or Designated Caregiver - Respiratory Oxygen Delivery Method: Nasal Cannula @L/min Oxygen Flow Rate: 2 - Constitutional Appears: Non-toxic, No Acute Distress - Head Head Exam: ATRAUMATIC, NORMAL INSPECTION, NORMOCEPHALIC - Eyes Eye Exam: PERRL Additional Comments: pt unable to track visual stimuli upon initial exam, but upon reexamination, pt had improved ability track - Respiratory Exam Respiratory Exam: Clear to Ausculation Bilateral, NORMAL BREATHING PATTERN. absent: Rales, Rhonchi, Wheezes - Cardiovascular Exam Cardiovascular Exam: +S1, +S2. absent: Irregular Rhythm, Murmur - GI/Abdominal Exam GI & Abdominal Exam: Soft, Normal Bowel Sounds - Neurological Exam Neurological Exam: Alert, Awake - Extremities Exam Extremities Exam: absent: Calf Tenderness, Normal Inspection, Pedal Edema Plan - Assessment of Findings&Treatment Plan 52 year old male with a past medical history of alcohol abuse, seizures and atrial fibrillation who was admitted for alcohol withdrawal. PROGRAM MANAGER RN was called when nurse noticed patients mental status changed and all 4 extremities began to shake. Plan: - 2 mg IVP ativan given Disposition: - Patient was r-evaluated avter 1mg ativan given ? seizure subsided, patient was clinically postictal w/ improving mentation upon further evaluation. An attempt was made to contact PMD Dr. Clyde Chirinos.
[2017-08-26 00:46] VITALS: RESP 20
--- NOTE | 2017-08-26 07:32 | CP.PCM.PN ---
Subjective - Date & Time of Evaluation Date of Evaluation: 08/26/17 Time of Evaluation: 07:28 - Subjective Subjective: PGY-[address] Ruggiero's service Patient seen and examined at bedside. Per nursing no acute events overnight. Patient reports "bad headache" yesterday after "his seizure." He denies seizure- like activity overnight, fever, chills, abdominal pain, N/v. He states he is ready for discharge but is still debating location for inpatient rehab. Objective - Vital Signs/Intake and Output Vital Signs (last 24 hours): Temp Pulse Resp BP Pulse Ox 98.3 F 72 20 120/80 96 08/26/17 00:46 08/26/17 00:46 08/26/17 00:46 08/26/17 00:46 08/26/17 00:46 Intake and Output: 08/26/17 08/26/17 06:59 18:59 Intake Total 240 Output Total 1400 Balance -1160 - Medications Medications: Current Medications Benztropine Mesylate (Cogentin) 2 mg PO Q6 PRN PRN Reason: Extra Pyramidal Symptoms Diphenhydramine HCl (Benadryl) 50 mg IM Q6 PRN PRN Reason: Agitation Escitalopram Oxalate (Lexapro) 10 mg PO DAILY [facility] Last Admin: 08/25/17 13:06 Dose: 10 mg Folic Acid (Folic Acid) 1 mg PO DAILY [facility] Last Admin: 08/25/17 10:06 Dose: 1 mg Levetiracetam (Keppra) 1,000 mg PO BID [facility] Last Admin: 08/25/17 17:06 Dose: 1,000 mg Lorazepam (Ativan) 2 mg IVP Q4H PRN PRN Reason: Anxiety Last Admin: 08/22/17 21:24 Dose: 2 mg Magnesium Chloride (Slow-Mag) 64 mg PO TID [facility] Last Admin: 08/25/17 17:06 Dose: 64 mg Metoprolol Succinate (Toprol Xl) 100 mg PO Q24H [facility] Last Admin: 08/25/17 13:05 Dose: 100 mg Multivitamins (Hexavitamin) 1 tab PO DAILY [facility] Last Admin: 08/25/17 10:06 Dose: 1 tab Nicotine (Nicoderm Cq) 1 patch TD Q24H [facility] Last Admin: 07/18/18 13:05 Dose: 1 patch Potassium Chloride (K-Dur 20 Meq Er Tab) 20 meq PO DAILY [facility] Last Admin: 08/25/17 10:06 Dose: 20 meq Thiamine HCl (Vitamin B1 Inj) 100 mg IM DAILY [facility] Last Admin: 08/25/17 10:05 Dose: 100 mg Trazodone HCl (Desyrel) 50 mg PO HS [facility] Last Admin: 08/25/17 22:06 Dose: 50 mg - Labs Labs: 08/24/17 07:12 08/24/17 07:12 - Additional Findings Additional findings: Head Exam Head Exam: ATRAUMATIC, NORMAL INSPECTION, NORMOCEPHALIC - Eye Exam Eye Exam: EOMI, Normal appearance, PERRL. absent: Periorbital tenderness Pupil Exam: NORMAL ACCOMODATION, PERRL - ENT Exam ENT Exam: Mucous Membranes Moist, Normal Oropharynx - Respiratory Exam Respiratory Exam: Clear to Ausculation Bilateral, NORMAL BREATHING PATTERN. absent: Prolonged Expiratory Phase, Respiratory Distress - Cardiovascular Exam Cardiovascular Exam: REGULAR RHYTHM, +S1, +S2 - GI/Abdominal Exam GI & Abdominal Exam: Soft, Normal Bowel Sounds - Extremities Exam Extremities Exam: Full ROM. absent: Joint Swelling, Pedal Edema, Tenderness - Neurological Exam Neurological Exam: Alert, Awake, CN II-XII Intact, Normal Gait, Oriented x3 Assessment and Plan - Assessment and Plan (Free Text) Plan: EtOH Withdrawal Observe on med surg EtOH level 213 on admission Previous multiple admissions to located within [facility] for same complaint. Seizure precautions, Aspiration precautions, Fall precautions, Neurochecks q 4 Ativan taper completed. Physical therapy evaluation recommends Subacute rehab. Will follow up with social work. Seizure D/O Continue home Keppra 100mg PO BID EEG 2016 shows no epilleptiform activity AFib Rate controlled over course EKG (08/20/17): Afib @[address]; [address]/T wave changes Toprol XL 100 (hold if SBP <110 or Pulse <60) CHADsVAsc:1 (HTN history) HASBLED: 1 (> 8 drinks per week) No anticoagulation due to frequent falls Cont to monitor Pancytopenia likely Alcohol induced Hold Heparin Monitor HFmrEF (CHF with mildly reduced EF) ECHO (10/2016): systolic fxn mildly impaired EF ~45%. RV mildly dilated. Mild to moderate tricuspid regurgitation. No pericardial effusion. No vegetation or thrombus. Toprol XL 100mg PO Daily Transaminitis (elevated AST) AST 2:1 typical of EtOH Hx of ETOH abuse: Advised cessation Hx of tobacco abuse: Nicotine patch Prophylaxis Hold heparin due to thrombocytopenia SCDs GI not indicated Disposition:Patient expected to move to Subacute rehab for therapy. Pending insurance approval. Jace Batista PGY-2 All medical management per Dr. Ruggiero Discharge Instructions: 1.Follow up with PMD or make an appointment with [facility] within 5 to 7 days upon discharge. 2.Provided information regarding halfway rehab options upon discharge. 3 Advised patient to return to hospital for any new or worsening symptoms.
[2017-08-26] MEDS: Multiple Vitamins Tab PO SCH (10:51)
[2017-08-26] MEDS: Potassium Chloride 20 mEq ER Tab PO SCH (10:51)
[2017-08-26] MEDS: Thiamine 100 mg/ml Inj IM SCH (10:52)
[2017-08-26] MEDS: Magnesium Chloride 64 mg ER Tab PO SCH ×3 (10:54→17:30)
[2017-08-26] MEDS: Metoprolol Succinate 100 mg XL Tab PO SCH (13:11)
[2017-08-26 16:14] VITALS: BP 114/75; PULSE 79; TEMP 98.1; O2SAT 97
== END 2017-08-26 18:36 | DRG 750 ==
LOC: C.ER 02:55 → SUPCPDRO 02:55 → C.9E 06:21 → C.5S 10:26
PROVIDERS: ADMIT Internal Medicine Pulmonary Disease; ATTEND Internal Medicine Pulmonary Disease
PROC: HZ2ZZZZ Detoxification Services for Substance Abuse Treatment (ICD-10-PCS; principal; 2017-08-20)
DX: F10.230 Alcohol dependence with withdrawal, uncomplicated (principal); D61.818 Other pancytopenia; F03.90 Unspecified dementia, unspecified severity, without behavioral disturbance, psychotic disturbance, mood disturbance, and anxiety; I11.0 Hypertensive heart disease with heart failure; I50.9 Heart failure, unspecified; Y90.7 Blood alcohol level of 200-239 mg/100 ml; G47.00 Insomnia, unspecified; G40.909 Epilepsy, unspecified, not intractable, without status epilepticus; F41.9 Anxiety disorder, unspecified; F32.9 Major depressive disorder, single episode, unspecified; I48.91 Unspecified atrial fibrillation; Z87.891 Personal history of nicotine dependence; Z59.0 Homelessness